=== PATIENT | female | born 1985 | race Caucasian/White ===

== ENCOUNTER 2024-06-20 07:55 | Day surgery (SDC) | payer OTHER ==
[2024-06-13 13:31] VITALS: BP 130/78
--- NOTE | 2024-06-17 09:26 | NUR ---
PHONE CALL TO DR ANUJ LAMAR AND REPOTED ABOUT BETA HCG QUANT OF 701.0. IT WAS REPORTED THAT PT HAD A SURGERY IN [facility] AND REPEAT LABS OBTAINED.
[~2024-06-20] VITALS: Ht 152.4 cm; Wt 95.5 kg
[~2024-06-20 07:55] MED LIST: ADVIL200 MG PO; CEFAZOLIN SODIUM 2 GM/20 ML SYR IV SCH; DEXAMETHASONE SOD PHOS 4 MG/ML VIAL ONE; FAMOTIDINE 20 MG/ 2 ML VIAL ONE; HEParin SOD (PORCINE) 5,000 UNIT/0.5 ML SYR SUB-Q SCH; IBLOOD GLUCOSE TEST STRIP 1 EA TEST VI PRN; KETOROLAC TROMETHAMINE 30 MG/ML VIAL ONE; KLONOPIN2 MG PO; LACTATED RINGER'S 1,000 ML IV ONE; LACTATED RINGER'S 1,000 ML IV SCH; LIDOCAINE HCL 1% 5 ML SDV INJ ONE; LIDOCAINE HCL 4% 5 ML AMP ONE; MEPERIDINE HCL 25 MG/1 ML VIAL IV PRN; METOCLOPRAMIDE HCL 10 MG/2 ML SDV IV PRN; METOCLOPRAMIDE HCL 10 MG/2 ML SDV ONE; MIDAZOLAM HCL 2 MG/2 ML VIAL ONE; NALOXONE HCL 0.4 MG SYR IV PRN; PROCHLORPERAZINE EDISYLATE 10 MG/2 ML VIAL IV PRN; ROCURONIUM BROMIDE 50 MG/5 ML SYR ONE; SUCCINYLCHOLINE IN 0.9% NACL 200 MG/10 ML SYRINGE ONE; SUGAMMADEX SODIUM 200 MG/2 ML ML ONE; TYLENOL325 MG PO; droPERidol 5 MG/2 ML VIAL IV PRN; fentaNYL citrate 100 MCG/2 ML VIAL ONE; fentaNYL citrate 50 MCG/ML SDV IV PRN; ondansetron HCL 4 MG/2 ML VIAL IV PRN; ondansetron HCL 4 MG/2 ML VIAL ONE; propofoL 200 MG/20 ML VIAL ONE
[2024-06-20 08:04] VITALS: BP 125/80
[2024-06-20] MEDS ORDERED: ATROPINE SULFATE 1 MG/ML VIAL ONE (10:03)
[2024-06-20] MEDS ORDERED: ROCURONIUM BROMIDE 50 MG/5 ML SYR ONE (10:12)
[2024-06-20] MEDS ORDERED: LACTATED RINGER'S 1,000 ML IV ONE (10:14)
[2024-06-20] MEDS ORDERED: FLUORESCEIN SODIUM 500 MG/5 ML ML ONE (10:19)
[2024-06-20] MEDS ORDERED: SIMETHICONE 125 MG TABLET CHEWABLE PO PRN (11:30)
[2024-06-20] MEDS ORDERED: ondansetron HCL 4 MG/2 ML VIAL IV PRN (11:30)
[2024-06-20] MEDS ORDERED: OXYCODONE/APAP 5/325 TAB PO PRN (11:30)
[2024-06-20] MEDS ORDERED: FAMOTIDINE 20 MG/ 2 ML VIAL IV PRN (11:30)
[2024-06-20] MEDS ORDERED: NALOXONE HCL 0.4 MG SYR IV PRN (11:30)
[2024-06-20] MEDS ORDERED: PROCHLORPERAZINE EDISYLATE 10 MG/2 ML VIAL IV PRN (11:30)
--- NOTE | 2024-06-20 11:47 | NUR ---
06/20/24 1147 JOHANNY MACE 1114 PT ARRIVED TO PACU FROM OR VIA STREACHER. PT HAS ORAL AIRWAY IN PLACE AND ADJUSTED PT HEAD FOR BREATHING. PT FOGGING AND CHEST RISE NOTED. 1124 AIRWAY REMOVED. MASK KEPT ON, 6L OXYGEN VIA FACE MASK. 1128 PT TAKEN OFF OXYGEN DUE TO PT SATURATION BEING ABOVE 96%. PT SATURATION STAYING ABOVE 90% ON RA. 1130 PT REPORTED 5/10 INTOLERABLE PAIN AND NAUSEA. PAIN MEDICATION AND NAUSEA MEDICATIONS GIVEN PER EMAR. 1146 PT OXYGEN SATURATION STAYING ABOVE 90% ON RA. PT REPORTS DECREASING PAIN. PT RESTING IN BED.
[2024-06-20] MEDS ORDERED: ACETAMINOPHEN 1,000 MG/100 ML VIAL IV PRN (12:00)
[2024-06-20 12:15] VITALS: BP 113/41
--- NOTE | 2024-06-20 12:20 | NUR ---
patient returns to day surgery via bed. report taken from FELICIANO Young. patient is awake and oriented, but drowsy. denies nausea at this time. pain is a 4/10 and 1000mg tylenol is infusing during handoff. patient has a manley catheter in place draining bright yellow urine. vital signs obtained. oxygen saturations in the low 90's. bed in lowest position and call light within reach. explained to patient that in about 20 minutes, we will get her up to see how she feels and if she does okay, I will remove her manley catheter and she is agreeable to this. water provieded to patient. denies any other needs at this time.
--- NOTE | 2024-06-20 12:30 | NUR ---
provided water to patient. instructed to sip on it to avoid additional nausea.
--- NOTE | 2024-06-20 12:45 | NUR ---
PATIENT SUCCESSFULLY STOOD AT BEDSIDE AND WALKED AROUND THE ROOM. DENIES ANY DIZZINESS OR NAUSEA ASSOCIATED WITH MOVEMENT. WILL TAKE OUT CANCINO CATHETER AT THIS TIME. PATIETN PLACED BACK IN BED IN THE SUPINE POSITION. 10ML OF STERILE WATER REMOVED FROM THE CANCINO CATHETER BALLOON. CATHETER REMOVED WITHOUT DIFFICULTY. INFORMED PATIENT THAT SHE WILL NEED TO URINATE IN ORDER TO COMPLETE MILESTONE TO GO HOME. PATIENT EXPRESSED UNDERSTANDING. WATER AND CRACKERS WITHIN REACH. BED IN LOWEST POSITION WITH CALL LIGHT WITHIN REACH. NO OTHER NEEDS STATED AT THIS TIME.
--- NOTE | 2024-06-20 13:15 | NUR ---
ANSWERED PATIENT CALL LIGHT. PATIENT FEELS THE NEED TO URINATE. ASSISTED PATIENT TO AMBULATE TO RESTROOM. SHE IS STEAD ON HER FEET. PATIENT ABLE TO URINATE 100ML URINE.
[2024-06-20 13:19] VITALS: BP 116/65
--- NOTE | 2024-06-20 13:30 | NUR ---
PATIENT HAS MET ALL DISCHARGE CRITERIA AT THIS TIME. PATIENT'S PAIN IS UNDER CONTROL WITH HER RATING IT A 3/10. SHE HAS DRANK WATER AND EATED WITHOUT ANY ADDITIONAL NAUSEA/VOMITING. SHE HAS VOIDED AND SHE HAS AMBULATED. PATIENT FEELS READY TO GO HOME. PATIENT ALLOWED TO GET DRESSED IN HER OWN CLOTHES.
[2024-06-20] MEDS ORDERED: IBU800 MG PO (13:44)
[2024-06-20] MEDS ORDERED: ONDANSETRON ODT8 MG PO (13:44)
[2024-06-20] MEDS ORDERED: HYDROCODON-ACE1 EA10 PO (13:44)
--- NOTE | 2024-06-29 16:38 | PATH ---
[facility] [address], [place] [address] Signed SPECIMEN(S): A UTERUS, CERVIX, BILATERAL TUBES SPECIMEN SOURCE: A. UTERUS, CERVIX, BILATERAL TUBES CLINICAL HISTORY: Pre: Abnormal uterine bleeding, dysmenorrhea, fibroids, post: TLH, BS with cysts. FINAL PATHOLOGIC DIAGNOSIS: Uterus with bilateral fallopian tubes, hysterectomy with bilateral salpingectomy: - Cervix: Nabothian cysts and focal microglandular hyperplasia. - Negative for intraepithelial lesion and malignancy. - Endometrium: Inactive to weakly proliferative endometrium. - Negative for hyperplasia, atypia, and malignancy. - Myometrium: Benign myometrium with adenomyosis. - No leiomyomata identified on histologic sections. - Serosa: Benign serosa with no specific histopathologic abnormality. - Fallopian tubes: Right and left fallopian tubes with fimbriated ends. - Dunsmuir tube segment has benign paratubal cysts, up to 1.2 cm in greatest diameter. - Longer tube segment has marked vascular congestion. - Negative for hyperplasia, atypia, and malignancy. - Separate portion of parametrial tissue with marked vascular congestion. SDL MICROSCOPIC EXAMINATION: Histologic sections of all submitted blocks are examined by light microscopy. These findings, together with the gross examination, support the pathologic diagnosis. GROSS DESCRIPTION: The specimen, labeled and designated "Wicho Berger, " and designated on the requisition "uterus and cervix with bilateral tubes," is received in formalin and consists of 113 gram uterus and cervix with fallopian tubes. The uterus is 4.6 x 4.5 x 9.3 cm (cornu-cornu x anterior-posterior x fundus-ectocervix). The serosal surface is morse-pink and smooth with multiple defects and white adherent membranous tissue. The ectocervical mucosa is pale pink and smooth. Serial sectioning of the cervix fails to demonstrate any gross abnormalities. The PATIENT NAME: PJ BERGER PATHOLOGY DATE OF : 81 REPORT #: [id number] PHYSICIAN: MALINDA PATHOLOGY PCP: JOSE ENRIQUE ARCHIBALD MD REPORT IS CONFIDENTIAL AND NOT TO BE RELEASED WITHOUT AUTHORIZATION [facility] [address], [place] [address] Signed triangular endometrial cavity is lined by a pink smooth and focally congested endometrium that has an average thickness of 0.3 cm. Sectioning through the uterus reveals a pink moderately trabeculated myometrium with cystic structures within the myometrium and one white-morse intramural nodule that is 0.5 cm in greatest dimension. The first fallopian tube is 6.2 x 0.7 cm, with delicate fimbriae. The serosa is violaceous and smooth. Cut sections reveal a pinpoint lumen. The second fallopian tube is 3.0 x 0.7 cm, with delicate fimbriae. The serosa is violaceous and smooth with paratubal cysts. Cut sections reveal a pinpoint lumen. Separate within the container is a pink nodular structure that is 1.2 x 0.7 x 0.4 cm. Cut sections reveal multiple pinpoint vascular lumens. Machine Tool Operator sections are submitted in six cassettes. Cassette Summary: (A1-A2) first fallopian tube (A3) second fallopian tube (A4) cervix (A5) uterine wall (A6) cystic structures within the myometrium and intramural nodule (A7) tubular structure separate within the container FB (under the direct supervision of a pathologist) Additional tissue is submitted for Trinh Can MD's request in cassette A7. FB The Gross Description was prepared using a voice recognition system. The report was reviewed for accuracy; however, sound-alike word errors, addition and/or deletions may occur. If there is any question about this report, please contact Client Services. ADDITIONAL NOTES: Immunohistochemical and/or in situ hybridization studies if performed in this case included appropriate positive controls that reacted as expected. This test was developed and its performance characteristics determined by [facility]. It has not been cleared or approved by the U.S. Food and Drug Administration. The FDA has determined that such clearance or approval is not necessary. This test is used for clinical purposes. It should not be regarded as investigational or for research. [facility] is certified under the Clinical Laboratory Improvement Amendments of 1988 (CLIA) as qualified to perform high complexity clinical PATIENT NAME: PJ BERGER PATHOLOGY DATE OF : 81 REPORT #: [id number] PHYSICIAN: MALINDA GREENE PCP: JOSE ENRIQUE ARCHIBALD MD REPORT IS CONFIDENTIAL AND NOT TO BE RELEASED WITHOUT AUTHORIZATION [facility] [address], [place] [address] Signed laboratory testing. PERFORMING LABORATORY: Technical component was performed by [facility], [address] [place] [id number] (CLIA# [id number]). Professional interpretation was performed by [facility], [address] [place] [id number] (CLIA#: [id number]). Diagnostician: Trinh Can MD Pathologist Electronically Signed 06/29/2024 Copies: ~ PATIENT NAME: PJ BERGER PATHOLOGY DATE OF : 81 REPORT #: [id number] PHYSICIAN: MALINDA PATHOLOGY PCP: JOSE ENRIQUE ARCHIBALD MD REPORT IS CONFIDENTIAL AND NOT TO BE RELEASED WITHOUT AUTHORIZATION
== END 2024-06-20 13:53 | disposition home or self-care (01) ==
LOC: OPS 07:55 → DS 07:55 → OPS 10:00 → DS 11:00 → OPS 11:00 → DS 12:00 → OPS 13:53
PROVIDERS: ATTEND Obstetrics & Gynecology
PROC: 0UT94ZZ Resection of Uterus, Percutaneous Endoscopic Approach (ICD-10-PCS; principal; 2024-06-20 10:00)
DX: N80.03 Adenomyosis of the uterus (principal); N88.8 Other specified noninflammatory disorders of cervix uteri; N83.8 Other noninflammatory disorders of ovary, fallopian tube and broad ligament; D25.1 Intramural leiomyoma of uterus; Z88.8 Allergy status to other drugs, medicaments and biological substances; Z79.899 Other long term (current) drug therapy
CPT/HCPCS: 00840; A9270; J0131; J0330; J0461; J0690; J1100; J1644; J1885; J2250; J2405; J2704; J2765; J3010; J3490; J7121